=== PATIENT | male | born 1970 | race Caucasian/White ===

== ENCOUNTER 2025-02-19 14:48 | Outpatient (OUT) | payer OTHER, SELFPAY ==
--- OUTSIDE RECORDS SUMMARY | 2025-02-19 14:52 | XMS_ITS | Clinical Summary ---
Author Organization [facility] Healthcare Address [address] [place] [address] Care Team Providers Care Filter Changing Technician Name Role Phone Unavailable Primary Care Provider Unavailabl e Social History Tobacco Use Types Packs/Day Years Used Date Smoking Tobacco: Never Assessed Sex and Gender Information Value Date Recorded Sex Assigned at Not on file Legal Sex Male 7:25 PM EDT Gender Identity Not on file Sexual Orientation Not on file Last Filed Vital Signs Vital Sign Reading Time Taken Comments Blood Pressure 130/76 06/03/2018 12:00 PM EST Pulse - - Temperature - - Respiratory Rate - - Oxygen Saturation - - Inhaled Oxygen Concentration - - Weight 114 kg (252 lb) 06/03/2018 12:00 PM EST Height 177.8 cm (5' 10 ) 06/03/2018 12:00 PM EST Body Mass Index 36.16 06/03/2018 12:00 PM EST Plan of Treatment Upcoming Encounters Date Type Department Care Team (Late st Contact Info) Description 03/30/2025 3:35 PM EDT [facility] [address] [facility] [address] [place] [id number] Laura Hernandez APRN-MEDICAL CASE MANAGER [address] [facility] [address] [place] [address] Health Maintenance Due Date Last Done Comments CT Colonography 1970 Colonoscopy 1970 Colorectal Cancer Screening 1970 FIT-DNA 1970 FIT 1970 FOBT 1970 Sigmoidoscopy 1970 Influenza Vaccine (#1) 2025 4, 07/03/2023, 06/01/2022, Additional history exists Insurance [employer]
== END 2025-02-19 14:49 | disposition home or self-care (01) ==
LOC: US 14:49
PROVIDERS: PCP Nurse Practitioner Family; Visit Provider Nurse Practitioner Family
DX: M79.622 Pain in left upper arm (principal)
CPT/HCPCS: 93971